=== PATIENT | male | born 1965 | race Caucasian/White ===

== ENCOUNTER 2017-07-03 19:55 | Inpatient (IN) | payer OTHER ==
[~2017-07-03] VITALS: Ht 170.2 cm; Wt 83.0 kg
[2017-07-03 22:24] LABS: BASOPHIL % 0.4 % (0-2); PLATELET COUNT 148 x10^3mcL (130-400); RED CELL DISTRIBUTION WIDTH 13.8 % (11.5-14.5)
[2017-07-03 22:24] LABS: microscopic required? YES; urine erythrocyte 3+ (NEGATIVE)
[2017-07-03 22:33] LABS: CALCIUM 9.2 mg/dL (8.5-10.1); CARBON DIOXIDE 28.1 mmol/L (21-32); CREATININE SERUM 1.7 mg/dL (0.7-1.3); POTASSIUM SERUM 4.2 mmol/L (3.5-5.1)
[2017-07-03 22:38] LABS: ALBUMIN 4.1 g/dL (3.4-5.0); BILIRUBIN TOTAL 0.61 mg/dL (0.20-1.00); TOTAL PROTEIN, SERUM 7.8 g/dL (6.4-8.2)
[2017-07-04 02:41] VITALS: BP 143/94
[2017-07-04 03:24] LABS: T3 TOTAL 1.2 ng/mL
[2017-07-04 05:11] LABS: MAGNESIUM 1.9 mg/dL (1.8-2.4)
[2017-07-04 05:13] LABS: CHOLESTEROL/HDL RATIO 5.9
[2017-07-04 05:14] LABS: FREE THYROXINE INDEX 3.7 ug/dL (1.4-4.5); T4(THYROXINE) 10.1 ug/dL (4.7-13.3)
[2017-07-04 05:36] LABS: FREE T4 1.14 ng/dL (0.76-1.46)
[2017-07-04 06:02] VITALS: BP 140/87
[2017-07-04 09:24] VITALS: BP 132/90
[2017-07-04 12:08] LABS: AMPHETAMINE QUAL UR NONE DETECTED (NEG <=1000)
[2017-07-04 13:23] VITALS: BP 130/83
[2017-07-04 17:43] VITALS: BP 134/92
[2017-07-04 21:34] VITALS: BP 126/84
[2017-07-05 05:43] VITALS: BP 107/72
[2017-07-05 06:19] LABS: BASOPHIL % 0.5 % (0-2); PLATELET COUNT 130 x10^3mcL (130-400); RED CELL DISTRIBUTION WIDTH 13.3 % (11.5-14.5)
[2017-07-05 06:22] LABS: CARBON DIOXIDE 26.8 mmol/L (21-32); CREATININE SERUM 1.9 mg/dL (0.7-1.3); POTASSIUM SERUM 4.8 mmol/L (3.5-5.1)
[2017-07-05] MEDS ORDERED: LEVAQUIN250 M1 PO (08:51)
[2017-07-05] MEDS ORDERED: LAC PO (08:52)
[2017-07-05] MEDS ORDERED: FLO4 PO (08:54)
[2017-07-05 09:07] VITALS: BP 130/84
[2017-07-05 13:01] VITALS: BP 123/85
[2017-07-05] MEDS ORDERED: COLACE100 MG PO (13:29)
[2017-07-05] MEDS ORDERED: TRAMADOL HCL50 MG PO (13:29)
== END 2017-07-05 14:25 | disposition home or self-care (01) | DRG 694 ==
LOC: ED 19:55 → DU 07-04 01:26
PROVIDERS: Emergency Medicine; ADMIT Family Medicine
DX: N13.2 Hydronephrosis with renal and ureteral calculous obstruction (principal); N17.0 Acute kidney failure with tubular necrosis; N39.0 Urinary tract infection, site not specified; R73.03 Prediabetes; E78.5 Hyperlipidemia, unspecified; E66.3 Overweight; Z68.28 Body mass index [BMI] 28.0-28.9, adult
CPT/HCPCS: 83880; 84439; J1885; J1956; J2270; J2405; J7030; Q0092